=== PATIENT | female | born 1975 | race African-American/Black ===

== ENCOUNTER 2017-10-12 05:34 | Emergency (ER) | payer MEDICAID ==
[~2017-10-12] VITALS: Ht 165.1 cm; Wt 73.0 kg
[2017-10-12] MEDS ORDERED: SODIUM CHLORIDE 0.9% 1,000 ML IV ONE (06:21)
[2017-10-12] MEDS ORDERED: MORPHINE SULFATE 4 MG/ML CPJ (NOT FOR IM USE) IV STA (06:21)
[2017-10-12] MEDS ORDERED: ONDANSETRON HCL 4MG/2ML VIAL IV STA (06:21)
[2017-10-12] MEDS ORDERED: FAMOTIDINE 20MG/2ML VIAL IV STA (06:21)
[2017-10-12 06:44] LABS: CLARITY URINE CLEAR (CLEAR); COLOR URINE YELLOW (YELLOW); KETONES URINE TRACE (NEGATIVE); LEUKOCYTE ESTERASE URINE TRACE (NEGATIVE); NITRITE URINE NEGATIVE (NEGATIVE); OCCULT BLOOD URINE 2+ (NEGATIVE); PH URINE 5.5 (4.5-8.0); PROTEIN URINE TRACE (NEGATIVE); SPECIFIC GRAVITY URINE 1.029 (1.005-1.030); UROBILINOGEN URINE 0.2 E.U./dL (0.2-1.0)
[2017-10-12 07:02] LABS: BASOPHILS % 0.4 % (0.0-2.0); EOSINOPHILS % 0.5 % (0.0-5.0); HEMATOCRIT. 28.5 % (36.0-48.0); HEMOGLOBIN. 9.5 g/dL (12.0-16.0); LYMPHOCYTES % 15.1 % (20.0-50.0); MEAN CORPUSCULAR HEMOGLOBIN 29.4 pg (28.0-32.0); MEAN CORPUSCULAR VOLUME 88.3 fL (81.0-99.0); MEAN PLATELET VOLUME 8.9 fl (7.4-10.4); MONOCYTES % 6.4 % (2.0-8.0); NEUTROPHILS % 77.6 % (40.0-76.0); PLATELET 251 x1000/uL (130-400); RED BLOOD CELL COUNT 3.23 mill/uL (4.2-5.4); RED CELL DISTRIBUTION WIDTH 17.2 % (11.6-14.6)
[2017-10-12 07:03] LABS: CHLORIDE 106 mEq/L (98-107)
[2017-10-12] MEDS ORDERED: KETOROLAC 30MG/ML VIAL IV ONE (08:00)
[2017-10-12] MEDS ORDERED: ONDANSETRON HCL 4MG/2ML VIAL IV ONE (08:15)
[2017-10-12 11:56] VITALS: BP 144/78
== END 2017-10-12 12:10 | disposition home or self-care (01) ==
LOC: ER 05:34
DX: K80.20 Calculus of gallbladder without cholecystitis without obstruction (principal); F14.10 Cocaine abuse, uncomplicated; Z87.891 Personal history of nicotine dependence
CPT/HCPCS: 36415; 76705; 80053; 81003; 81025; 83690; 85025; 96361; 96374; 96375; 96376; 99285; J1885; J2270; J2405; J3490; J7030